=== PATIENT | female | born 1980 | race Caucasian/White ===

== ENCOUNTER 2016-05-08 11:37 | Emergency (ER) | payer BC ==
[2016-05-08 11:46] VITALS: BP 105/72; PULSE 79; RESP 16; TEMP 97.3; O2SAT 95
--- NOTE | 2016-05-08 11:55 | UCPHY ---
H & P Patient Type: New Chief Complaint Nursing Narrative: tripped down 3 stairs wednesday/pain r ankle and lower fibula Time Seen by Provider: 05/08/16 11:48 HPI/ROS: Chief complaint: Right leg pain HPI: 35-year-old woman who had a slip and fall down 3 stairs 2 nights ago injuring her right ankle. Patient states she has been walking with some discomfort yesterday stepped on it and felt that increasing pain. No prior injuries. Patient states the pain is primarily seems to be on the outside and posterior aspect of her leg. No numbness or tingling. Is very painful but is able to weight bear. ROS: 10 point Review of Systems is negative except as noted in the HPI. Physical exam: General: Awake, alert, no acute distress Prior right leg: Right hip full range of motion without pain, right knee full range of motion without pain, she has no proximal fibular tenderness. She has some mild tenderness with palpation of the lateral Achilles tendon. She has a normal Mcgee test. She has some mild Vivian tenderness to palpation. No medial or lateral malleolar tenderness. Also has some midfoot dorsal tenderness without deformity. Sensations intact in all dermatomes. Cap refills less than 2 seconds. She has 2+ DP and PT pulses. Skin: No rash - Personal History LMP (Females 10-55): 22-28 Days Ago Current Tetanus/Diphtheria Vaccine: Yes - Medical/Surgical History Hx Asthma: No Hx Chronic Respiratory Disease: No Hx Diabetes: No Hx Cardiac Disease: No Hx Renal Disease: No Hx Cirrhosis: No Hx Alcoholism: No Hx HIV/AIDS: No Hx Splenectomy or Spleen Trauma: No Other PMH: celiac disease - Family History Significant Family History: No pertinent family hx - Social History Smoking Status: Current every day smoker Constitutional: Initial Vital Signs Temperature (C) 36.3 C 05/08/16 11:42 Heart Rate 79 05/08/16 11:42 Respiratory Rate 16 05/08/16 11:42 Blood Pressure 105/72 05/08/16 11:42 O2 Sat (%) 95 05/08/16 11:42 O2 Delivery Mode Room Air Allergies/Adverse Reactions: any cyllins Allergy (Uncoded 05/08/16 11:47) Home Medications: Medication Instructions Recorded NK [No Known Home Meds] 05/08/16 Medical Decision Making - Diagnostics Imaging: Ankle x-rays negative per Dr. Garcias. ED Course/Re-evaluation: 35-year-old with possible partial right Achilles tear. She certainly does not have a complete Achilles rupture at this time as she has a normal Mcgee test. Will discharge with Velcro splint and crutches and follow up with her primary care physician. Departure - Departure Disposition: Home, Routine, Self-Care Clinical Impression: Sprain of ankle Condition: Good Instructions: Ankle Sprain (ED) Additional Instructions: You take ibuprofen alternating with acetaminophen as needed for aches and pains. Use ankle splint and crutches as needed. Follow up with her primary care physician in 3-4 days if symptoms are not improving. Referrals: MARYCHUY LANDIN [Primary Care Provider] - As per Instructions - PQRS PQRS Measurement: NA
--- NOTE | 2016-05-08 12:13 | DX ---
Right Ankle, Three Views History: Pain, post trauma. Fall down stairs. Findings: No fracture, effusion, or dislocation is identified. Impression: Nothing acute identified.
== END 2016-05-08 12:44 | disposition home or self-care (01) ==
LOC: CED 11:37
DX: S93.401A Sprain of unspecified ligament of right ankle, initial encounter (principal); W10.8XXA Fall (on) (from) other stairs and steps, initial encounter
CPT/HCPCS: 73610-PO; 99204-PO; G0463-PO; L4350